=== PATIENT | male | born 1960 | race Caucasian/White ===

== ENCOUNTER → 2016-12-24 | Outpatient (CLI) | payer BC ==
--- NOTE | 2016-12-25 13:29 | DI ---
XR SHOULDER MIN 2VW,12/24/2016 4:21 PM: Clinical History: Right shoulder pain of unspecified chronicity. Previous Exam: None at this facility. Findings: 4 views of the right shoulder are obtained, and demonstrate anatomic alignment without fractures. There are degenerative changes noted of the right acromioclavicular joint. The right lung and chest wall are unremarkable. Impression: Mild degenerative changes of the right acromioclavicular joint otherwise unremarkable.
--- NOTE | 2016-12-25 13:31 | DI ---
XR KNEE CMPT 4 OR MORE VWS,12/24/2016 4:21 PM: Clinical History: Right knee pain Previous Exam: None at this facility. Findings: 4 views of the right knee are obtained, and demonstrate anatomic alignment without fractures. Joint s paces are preserved. The surrounding soft tissues are unremarkable. Impression: Normal right knee.
== END ==
LOC: ORTHO 16:40
PROVIDERS: ATTEND Orthopaedic Surgery
DX: M25.511 Pain in right shoulder (principal); M25.561 Pain in right knee; M76.51 Patellar tendinitis, right knee; M25.811 Other specified joint disorders, right shoulder; M19.011 Primary osteoarthritis, right shoulder
CPT/HCPCS: 73030; 73564

== ENCOUNTER 2017-01-16 10:50 | Emergency (ER) | payer BC ==
--- NOTE | 2017-01-16 11:41 | DI ---
PA /LATERAL CHEST X-RAY, 01/16/2017 11:01 AM : Clinical History: Cough. Previous Exam: 02/22/2016. There is no acute soft tissue or bony abnormality. Heart size is normal. Lungs are clear. Mediastinal structures are normal. There are no pulmonary nodules. Reading: Normal chest x-ray. There has been no change.
[2017-01-16 11:53] VITALS: RESP 20; TEMP 97.1
--- NOTE | 2017-01-16 16:37 | PDOC ---
Upper Respiratory HPI - General Chief Complaint: Cough / URI Stated Complaint: URI SYMPTOMS Date Seen by Provider: 01/16/17 Time Seen by Provider: 11:00 Source: POSITIVE: Patient Exam Limitations: POSITIVE: No limitations Nurse's Notes Reviewed & Considered: Yes - History of Present Illness Initial Comments: The patient is a 56-year-old male who presents to the emergency department with productive cough. He states that he recently returned from a trip to [facility]. He states that for a day or 2 prior to his return trip home he developed some increased nasal congestion and sinus drainage. Over the past week this sinus drainage has continued and he now has a cough which is productive of darkish yellow phlegm. He also has some pain in his upper chest with coughing. He has had some subjective fevers and chills over the past couple of days. He denies any increase shortness of breath or chest pain otherwise. He is diabetic and states he has not noticed any increase in his blood sugars. He denies any other associated symptoms or complaints. He tried going to work this morning and just started feeling sicker. - Patient Home Medications Home Medications: Home Medications Cinnamon Bark [Cinnamon] 500 mg PO BID 02/18/13 Multivitamin [Multi Vitamin Daily] 1 tab PO DAILY 02/18/13 Inulin [Fiber Choice] 1.5 gm PO BID tab 07/19/14 Duloxetine HCl [Cymbalta] 1 cap PO BID #60 cap 11/04/15 Aspirin 1 mg PO DAILY 01/05/16 Metformin HCl 500 mg PO BID #180 tab 02/12/16 Omeprazole Magnesium [Prilosec Otc] 1 tab PO DAILY tab 02/22/16 Cyclobenzaprine HCl 2 tab PO QHS tab 03/06/16 Epinephrine [Epipen 2-Elías] 0.3 mg IM ONCE #1 unit 03/09/16 Dapagliflozin Propanediol [Farxiga] 10 mg PO QD #90 tab 04/05/16 Linagliptin [Tradjenta] 5 mg PO DAILY #90 tab 05/07/16 Blood Sugar Diagnostic [Freestyle Lite Test Strips] 1 each MC 3-4XD #100 strip 06/15/16 Blood-Glucose Meter [Freestyle Lite Meter] 1 each MC 3-4XD #1 unit 06/15/16 Colesevelam HCl [Welchol] 1,875 mg PO BID #1 bottle 07/13/16 Meloxicam 1 - 2 tab PO DAILY #60 tab 07/13/16 Lisinopril/Hydrochlorothiazide [Lisinopril-Hctz 20-12.5 Mg Tab] 1 tab PO BID # 180 tab 10/01/16 Fenofibrate [Tricor] 145 mg PO DAILY #90 tab 12/18/16 Pregabalin [Lyrica] 1 cap PO TID #90 cap 12/18/16 Zolpidem Tartrate 10 mg PO DAILY #30 tab 12/19/16 Benzonatate [Tessalon Perle] 100 mg PO Q6H PRN #20 capsule 01/16/17 Levofloxacin Tab [Levaquin Tab] 750 mg PO DAILY #10 tablet 01/16/17 Quetiapine Fumarate 50 mg PO DAILY 01/16/17 - Patient Allergies Allergies/Adverse Reactions: Allergies Allergy/AdvReac Type Severity Reaction Status Date / Time iodine Allergy Severe Anaphylaxis Verified 01/16/17 11:07 Penicillins Allergy Severe Anaphylaxis Verified 01/16/17 11:07 venom-honey bee Allergy Intermediate HIVES Verified 01/16/17 11:07 [bee venom (honey bee)] trimethoprim [From Bactrim] Allergy Mild HIVES Verified 01/16/17 11:07 shellfish derived Allergy Unknown Anaphylaxis Verified 01/16/17 11:07 sulfamethoxazole Allergy Unknown HIVES Verified 01/16/17 11:07 [From Bactrim] tetanus toxoid, adsorbed Allergy Unknown SWELLING Verified 01/16/17 11:07 Oranges Allergy Severe Anaphylaxis Uncoded 01/16/17 11:07 Cashews Allergy Unknown NOT Uncoded 01/16/17 11:07 APPLICABLE Dust Allergy Unknown NOT Uncoded 01/16/17 11:07 APPLICABLE Dust mites Allergy Unknown NOT Uncoded 01/16/17 11:07 APPLICABLE Grass Allergy Unknown NOT Uncoded 01/16/17 11:07 APPLICABLE Tree Allergy Unknown NOT Uncoded 01/16/17 11:07 APPLICABLE Yellow squash Allergy Unknown NOT Uncoded 01/16/17 11:07 APPLICABLE zuccini Allergy Unknown NOT Uncoded 01/16/17 11:07 APPLICABLE Past Medical History - heen HEENT History: Denies History Cardiovascular History: Hypertension, Hyperlipidemia Respiratory History: Denies History Additional Respiratory History: ALLERGIES. 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 Neurological History: Denies History Additional Neurological History: DIABETIC NEUROPATHY FEET AND HANDS Blood Disorders: Denies History Psychiatric History: Denies History History of Sexually Transmitted Diseases: No Cancer History: Denies History In Past Year Been Physically Harmed or Verbally Threatened: No History of MDRO: No History of Other Communicable Diseases: Yes (HAD SYPHILIS A CHILD) Tobacco Use: Never Smoker Alcohol Use: Occasionally Substance Use Type: None, Other (please comment) Previous Surgical History: Yes Type / Date of Surgery: TRACH AFTER ANAPHLATIC REACTION TO ORANGES 1967/ APPY/ UMBILICAL HERNIA / UMBILICAL HERNIA 2010/LEFT TOTAL HIP REPLACEMENT 03/30/14 Anesthesia Reactions: No Malignant Hyperthermia: No Significant Family History: Heart disease, Cancer, Diabetes, Hypertension, Lung disease Past Medical History Reviewed: Reviewed - No Changes ROS - Limitations ROS Limitations: No Limitations Constitution: REPORTS: Chills, Fever Cardiovascular: DENIES: Chest Pain (Increased pain in his airway with coughing) Respiratory: REPORTS: Cough Productive (Darkish yellow phlegm which is occasionally containing some dark blood). DENIES: Hurts To Breathe, Shortness Of Breath Neurological: REPORTS: Denies Neuro Symptoms Gastrointestinal: REPORTS: Denies GI Symptoms Musculoskeletal: REPORTS: Denies MS Symptoms ENT: REPORTS: Congestion, Nasal Drainage, Sore Throat Upper Respiratory/Fever Exam - General Appearance General Appearance: REPORTS: Alert, Cooperative, No Acute Distress - HEENT HEENT: POSITIVE: Head Inspection Nml, Eyes Inspection Nml, Ears Inspection Nml, Pharynx Inspect. Nml - Neck Neck: REPORTS: Normal Inspection. DENIES: Lymphadenopathy - Respiratory Respiratory: REPORTS: No Respiratory Distress, Breath Sounds Normal, Speaks Full Sentences - Cardiovascular Cardiovascular: REPORTS: Regular Rate and Rhythm, Heart Sounds Normal - Skin Skin: REPORTS: Intact, No Rash - Extremities Extremity: Normal ROM: (All Extremities), Normal Inspection: (All Extremities) - Neurological / Psychological Neurological: POSITIVE: Oriented X3, Motor Normal, Sensation Normal Upper Resp/Fever Progress - Results Reviewed by me Xrays/CTs/US Reviewed by me: Yes Discussed with Radiologist: Yes Radiology Findings: Chest x-ray is normal per radiologist. - Patient's Progress MDM / ED Course: His vital signs were unremarkable here with no evidence of fever and normal oxygen levels. His chest x-ray shows no obvious pneumonia. He is coughing up some darkish yellow phlegm. He was started on Levaquin 750 mg daily for treatment of sinusitis and bronchitis with possible early pneumonia. In addition he was given Tessalon Perles as needed for cough. He is advised to rest and push fluids. He was given a note not to return to work until January 21. He will return to the emergency room if he develops increased shortness of breath, any worsening or change in symptoms. - Consult Counseled: POSITIVE: Patient, RE: Radiology Results, RE: DX, RE: Need for F/U Patient Care Time - Estimated PCT Patient Care Time (In Minutes): 15 Vital Signs - Recent Vital Signs Vital Signs: Vital Signs (Last 8 hours) Temp Pulse Resp BP Pulse Ox 01/16/17 11:00 97.1 F 98 20 116/81 92 - VS Reviewed Vital Signs Reviewed: Yes Discharge Clinical Impression: Bronchitis, Sinusitis Discharge Disposition: Discharged to Home Condition: Stable Prescriptions / Orders: Levofloxacin Tab [Levaquin Tab] 750 mg PO DAILY #10 tablet Benzonatate [Tessalon Perle] 100 mg PO Q6H PRN #20 capsule PRN Reason: Cough Patient Instructions Given at Discharge: Sinusitis (ED), Acute Bronchitis (ED) Additional Instructions: The chest x-ray did not show any evidence of pneumonia however it is possible that you still may have an early pneumonia or bronchitis. In addition you do have infection in your sinuses as well. You have been started on Levaquin 750 mg daily for 10 days. In addition you have been prescribed Tessalon Perles 100 mg every 6 hours as needed for cough. Return to the emergency room if increased shortness of breath, any worsening or change in symptoms. Follow-up with primary care if no improvement in 3-5 days. You have been given a note not to go back to work until January 21. Follow Up With: NONE,NONE [Primary Care Provider] -
== END 2017-01-16 12:00 | disposition home or self-care (01) ==
LOC: ER 10:50
DX: J20.9 Acute bronchitis, unspecified (principal); J01.90 Acute sinusitis, unspecified; R09.81 Nasal congestion; R05 Cough; E11.40 Type 2 diabetes mellitus with diabetic neuropathy, unspecified
CPT/HCPCS: 71020; 99282

== ENCOUNTER → 2017-02-11 | Outpatient (CLI) | payer BC ==
[2017-02-11 09:45] LABS: BLOOD UREA NITROGEN 22 mg/dL (7-22); CHOL/HDL RATIO 4.57 RATIO (0-4.0); EST GLOMERULAR FILTRATION > 60 (>60 ml/min/1.73m(2)); HDL CHOLESTEROL 45 mg/dL (40-150); SERUM ALBUMIN 4.5 g/dL (3.5-4.8); SERUM CHOLESTEROL 206 mg/dL (120-200)
[2017-02-11 09:46] LABS: HEMOGLOBIN A1C 6.58 % (4.2-6.0)
[2017-02-11 09:58] LABS: HEMATOCRIT 43.2 % (42.0-52.0); HEMOGLOBIN 15.1 g/dL (14.0-18.0); MEAN CORPUSCULAR HEMOGLOBIN 30.1 PG (27-31); MEAN CORPUSCULAR VOLUME 86.1 FL (80-90); RED BLOOD COUNT 5.02 10^6/uL (4.70-6.10)
[2017-02-11 09:59] LABS: MEAN PLATELET VOLUME 8.7 FL (7.4-12.2)
[2017-02-11 10:01] LABS: FREE T4 (FREE THYROXINE) 1.18 ng/dL (0.93-1.71)
== END ==
LOC: LAB 08:17
PROVIDERS: ATTEND Family Medicine
DX: E11.9 Type 2 diabetes mellitus without complications (principal); E78.5 Hyperlipidemia, unspecified; Z12.5 Encounter for screening for malignant neoplasm of prostate
CPT/HCPCS: 36415; 80053; 80061; 83036; 84439; 84443; 85027; G0103